=== PATIENT | male | born 1950 | race Caucasian/White ===

== ENCOUNTER → 2017-08-26 | Outpatient (CLI) | payer MEDICARE, BC ==
--- NOTE | 2017-08-26 20:55 | CONS ---
CONSULTATION REASON FOR CONSULTATION: Sleep apnea. This 67-year-old male patient is coming to the sleep center due to concerns about very poor sleep quality, to the point where the patient has not been able to sleep, and his sleep quality, according to him, has been poor for around 35 years. He is not new to our sleep center. He saw Dr. Adorno back in 2005 and was diagnosed having obstructive sleep apnea that was mild in severity, and back then his AHI was only 7. He was given CPAP therapy that he used at a pressure of 9 cm of water. After using the CPAP for quite some time, the patient was still having poor sleep quality and he came back for reevaluation. A repeat sleep study was done in 2009 and the patient was found to have an AHI of 17, which was worse compared to his original study. During this time the patient had gained around 10 pounds. His CPAP pressure was increased up to 12 cm of water. He used the CPAP for another few years and he has been off treatment for the past 5 years. Since then his condition has been progressively getting worse. The patient has been at the point where he is unable to sleep without choking and gasping, and he would wake up constantly in the middle of the night. He is exhausted during the day. He goes to bed early at around 8:30 p.m. and he wakes up and gets out of bed around midnight. Following that, he is unable to fall asleep and he stays awake throughout the night doing different activities, including TV and computer work and reading, and he feels tired and sleepy throughout the day. He is getting progressively more depressed and he is feeling that his sleep quality and health in general have been on a downward course. For that reason, he decided to come back to the sleep center to undergo further evaluation. The patient is known to have coronary artery disease and diabetes mellitus and hypertension, hyperlipidemia. His previous sleep study had shown also a moderate degree of periodic limb movements, yet the patient denies having any symptoms of restless legs. No numbness or tingling in the lower extremities bilaterally. Denies having any kicks. This is also supported by his 's observation. Nevertheless, he is snoring very loudly and he would quit breathing on multiple occasions, as reported by his . He has gained weight; overall he has gained around 20 pounds since his original evaluation for sleep apnea back in 2005. Currently he is up to 263. No anxiety. No depression. No sleepwalking or sleeptalking. No chronic pain. Occasional reflux, for which he is on proton pump inhibitor. No other psychiatric disorder. PAST MEDICAL HISTORY: 1. Obstructive sleep apnea, details as discussed above. 2. Coronary artery disease. 3. Diabetes. 4. Hypertension. 5. History of depression. 6. History of acid reflux. 7. Atrial fibrillation. SURGICAL HISTORY: 1. Epigastric hernia repair. 2. Repair of a rotator cuff. DRUG ALLERGIES: PENICILLIN. OUTPATIENT MEDICATION LIST: 1. Levemir insulin. 2. 2 mg t.i.d. 3. 1 tablet a day. 4. Metoprolol 25 mg p.o. daily. 5. Losartan 100 mg p.o. daily. 6. Coumadin 5 mg p.o. daily. 7. Metformin 500 mg ER 2 tablets twice a day. 8. Atorvastatin 10 mg p.o. daily. SOCIAL HISTORY: Nonsmoker. No history of alcoholism. No history of IV drugs. No substance abuse. FAMILY HISTORY: Negative for sleep apnea. REVIEW OF SYSTEMS: Twelve-point review of systems was done. The patient admits to snoring and stopped breathing. He has nocturia. No grinding of the teeth. No sleepwalking or dry mouth. No anxiety or panic attacks. No palpitations. No heartburn. No sleeptalking. No symptoms of restless legs syndrome. No sweating. No anxiety. No memory problems. No concentration problems. No history of active depression at this point. PHYSICAL EXAMINATION: BP is 160/87, pulse 73, respirations 16, temperature 98.3 saturation 95% on room air. Weight is 263. Height is 5 feet 11 inches. Bessemer score is 7. BMI is 36. GENERAL APPEARANCE: Calm, comfortable. No acute distress. Head is atraumatic, normocephalic. Neck is short, supple. There is crowding of the posterior pharynx with a Mallampati class IV. LUNGS: Clear to auscultation. Heart sounds are regular rate and rhythm. Normal S1, S2. No S3, S4. No murmurs. ABDOMEN: Soft, nontender. No organomegaly. EXTREMITIES: No edema. No cyanosis or clubbing. NEUROLOGIC: Alert and oriented x3. There is no focal neurological deficit. PSYCHIATRIC: Negative for anxiety or depression. IMPRESSION: 1. Obstructive sleep apnea, moderate, based on the sleep study that was done in 2009 with an AHI of 17. Nevertheless, the patient's condition has gotten worse and the patient is coming in for reevaluation, knowing that he has become much more symptomatic. He is not utilizing any form of CPAP therapy at this point. 2. Periodic limb movements without symptoms of restless legs syndrome. 3. Coronary artery disease. 4. Diabetes mellitus. 5. Hypertension. 6. Hyperlipidemia. 7. Chronic atrial fibrillation. 8. History of depression. 9. History of acid reflux. PLAN: Reevaluate this patient. The patient obviously has developed significant difficulties with his sleep quality, to the point where he has his sleep hours to an earlier phase and he has an advanced sleep phase syndrome, yet his sleep quality is poor and he is unable to achieve more than 5 hours of sleep; he snores and he quits breathing; and as such, he has been feeling very tired and fatigued during the day. He will need reevaluation to assess the presence and the severity of obstructive sleep apnea, and based on that we will make further recommendations on treatment options. It is very likely that the patient will need to go back on CPAP therapy. This will largely depend on the presence and the severity of sleep apnea as it will be measured during a repeat polysomnogram that will be scheduled to be done here at [facility]. YANA / AUTUMN: [id number] /
== END | disposition home or self-care (01) ==
LOC: SLEEP 15:16
PROVIDERS: ATTEND Internal Medicine Critical Care Medicine
DX: G47.33 Obstructive sleep apnea (adult) (pediatric) (principal); G47.61 Periodic limb movement disorder; I25.10 Atherosclerotic heart disease of native coronary artery without angina pectoris; E11.9 Type 2 diabetes mellitus without complications; I10 Essential (primary) hypertension; I48.2 Chronic atrial fibrillation; Z87.19 Personal history of other diseases of the digestive system; Z86.59 Personal history of other mental and behavioral disorders; Z88.0 Allergy status to penicillin; Z79.4 Long term (current) use of insulin; Z79.01 Long term (current) use of anticoagulants; Z79.84 Long term (current) use of oral hypoglycemic drugs; Z79.899 Other long term (current) drug therapy
CPT/HCPCS: 99211

== ENCOUNTER → 2017-12-02 | Outpatient (CLI) | payer MEDICARE, BC ==
--- NOTE | 2017-12-02 19:11 | PN ---
PROGRESS NOTE I am seeing this patient in followup regarding his SHRADDHA treatment and compliancy. The patient is 67 and presented with features consistent with obstructive sleep apnea and the patient was diagnosed having moderate to severe SHRADDHA with an AHI of 26, worse during REM. The patient was offered CPAP therapy at a pressure of 10 cm of water with a C- Flex of 3 and he was given an AirFit P10 nose pillow. The patient reported marked improvement in his sleep quality. He is much more improved and is sleeping peacefully and is waking up much more alert and refreshed during the day. No major hypersomnia or sleepiness during the day. No falling asleep while driving or performing day-to-day activities. Based on his compliance data, the patient is averaging around 7.1 hours of CPAP use per night. His CPAP use for more than 4 hours is 23/30. His AHI while on treatment is down to 3.4. His leak factor is 13 L/minute. He has no specific complaints. He is trying to lose weight. He has already lost 2 pounds since his last evaluation. REVIEW OF SYSTEMS: A 12-point review of systems was done. Positive findings are mentioned above in the history of present illness. Otherwise, the patient has no significant complaints. No angina. No shortness of breath. No palpitations at nighttime. No major hypersomnia or sleepiness during the day. No swelling of lower extremities. No anxiety or depression. BP is 150/70, pulse 64, respirations 16, temperature is 97.5, weight is 261, saturation 97% on room air. GENERAL APPEARANCE: Calm, comfortable. Head is atraumatic, normocephalic. Neck is supple. There is no JVD. No goiter or neck masses. LUNGS: Clear to auscultation. HEART: Sounds regular rate and rhythm. Normal S1, S2. No S3. No murmurs. ABDOMEN: Soft, nontender. No organomegaly. EXTREMITIES: No edema. No cyanosis or clubbing. NEUROLOGIC: Alert and oriented x3. There are no focal neurological deficits. PSYCHIATRIC: Negative for anxiety or depression. IMPRESSION: 1. Symptomatic obstructive sleep apnea, apnea-hypopnea index of 26, worse during REM. The patient is undergoing successful CPAP therapy with a pressure of 10 cm of water with a C-Flex of 3. 2. Obesity with a BMI of 36. 3. Coronary artery disease. 4. Diabetes mellitus. 5. Hypertension. 6. Hyperlipidemia. 7. History of atrial fibrillation. Current rhythm is sinus. 8. Depression. 9. Acid reflux. PLAN: 1. Continue CPAP therapy at the same level of pressure. 2. Renew the supplies. 3. Encourage weight loss. 4. Treatment is successful. The patient qualifies for treatment. He is much benefitting from the treatment and the patient will see me back in a year's time in followup, earlier if needed. MMLEAL / GARRETTN: [id number] /
== END ==
LOC: SLEEP 14:58
PROVIDERS: ATTEND Internal Medicine Critical Care Medicine
DX: G47.33 Obstructive sleep apnea (adult) (pediatric) (principal); E66.9 Obesity, unspecified; I25.10 Atherosclerotic heart disease of native coronary artery without angina pectoris; E11.9 Type 2 diabetes mellitus without complications; I10 Essential (primary) hypertension; E78.5 Hyperlipidemia, unspecified; F32.9 Major depressive disorder, single episode, unspecified; K21.9 Gastro-esophageal reflux disease without esophagitis; Z99.89 Dependence on other enabling machines and devices; Z68.36 Body mass index [BMI] 36.0-36.9, adult; I48.91 Unspecified atrial fibrillation

== ENCOUNTER 2020-01-04 07:59 | Emergency (ER) | payer MEDICARE, BC ==
--- NOTE | 2020-01-04 08:27 | ED ---
General Adult HPI - General Chief complaint: Chest Pain Stated complaint: Chest pain Time Seen by Provider: 01/04/20 08:10 Source: patient, RN notes reviewed, old records reviewed Mode of arrival: ambulatory Limitations: no limitations - History of Present Illness Initial comments: 69-year-old male presenting for evaluation of left-sided chest pain. Pain began approximately 45 minutes prior to arrival. This is a nonradiating pain on the left side of his chest. No associated diaphoresis, no associated vomiting. No abdominal pain. Patient has history of CAD, atrial fibrillation, hypertension, hypercholesterolemia and diabetes. He is currently on Coumadin and metoprolol. He has been compliant with this medication. He states he had a stent placed in 2019. He does follow regularly with cardiology. - Related Data Home Medications Medication Instructions Recorded Confirmed Atorvastatin [Lipitor] 10 mg PO DAILY 01/04/20 01/04/20 Fluocinonide 0.05% [Fluocinonide] 1 applic TOPICAL HS 01/04/20 01/04/20 Hydrocortisone Cream 1 applic TOPICAL DAILY 01/04/20 01/04/20 [Hydrocortisone 2.5% Cream] Insulin Glargine,Hum.rec.anlog 30 unit SQ BID 01/04/20 01/04/20 [Lantus Solostar] Ketoconazole 2% Shampoo [Nizoral] 1 applic TOPICAL HS 01/04/20 01/04/20 Losartan Potassium 100 mg PO DAILY 01/04/20 01/04/20 Metoprolol Tartrate [Lopressor] 25 mg PO BID 01/04/20 01/04/20 Pioglitazone [Actos] 30 mg PO HS 01/04/20 01/04/20 Repaglinide [Prandin] 2 mg PO TID 01/04/20 01/04/20 Warfarin [Coumadin] 5 mg PO [id number] 01/04/20 01/04/20 metFORMIN HCL [metFORMIN HCL ER] 1,000 mg PO BID 01/04/20 01/04/20 Allergies Allergy/AdvReac Type Severity Reaction Status Date / Time Penicillins Allergy Unknown Verified 01/04/20 08:58 Review of Systems ROS Statement: Those systems with pertinent positive or pertinent negative responses have been documented in the HPI. ROS Other: All systems not noted in ROS Statement are negative. Past Medical History Past Medical History: Atrial Fibrillation, Diabetes Mellitus, Hyperlipidemia, Hypertension History of Any Multi-Drug Resistant Organisms: None Reported Past Surgical History: Heart Catheterization With Stent, Hernia Repair, Orthopedic Surgery Past Psychological History: No Psychological Hx Reported Smoking Status: Never smoker Past Alcohol Use History: Occasional Past Drug Use History: None Reported General Exam Limitations: no limitations General appearance: alert Head exam: Present: atraumatic, normocephalic Eye exam: Present: normal appearance, PERRL ENT exam: Present: normal exam Neck exam: Present: normal inspection. Absent: tenderness, meningismus Respiratory exam: Present: normal lung sounds bilaterally, chest wall tenderness. Absent: respiratory distress, wheezes Cardiovascular Exam: Present: normal rhythm, bradycardia GI/Abdominal exam: Present: soft. Absent: distended, tenderness Extremities exam: Present: normal inspection, normal capillary refill, other (B ilateral PT pulses 2+, symmetric radial pulses 2+). Absent: pedal edema Neurological exam: Present: alert, oriented X3, CN II-XII intact. Absent: motor sensory deficit Psychiatric exam: Present: normal affect, normal mood Skin exam: Present: warm, dry, intact. Absent: cyanosis, diaphoretic Course Vital Signs 01/04/20 01/04/20 01/04/20 08:06 08:22 09:02 Temperature 97.7 F Pulse Rate 57 L 50 L 52 L Pulse Rate [ 50 L Bilateral Radial] Respiratory 16 16 12 Rate Blood Pressure 139/78 164/85 122/74 O2 Sat by Pulse 98 98 97 Oximetry 01/04/20 01/04/20 09:44 10:07 Temperature Pulse Rate 53 L 60 Pulse Rate [ Bilateral Radial] Respiratory 12 16 Rate Blood Pressure 138/88 125/94 O2 Sat by Pulse 97 97 Oximetry EKG Findings - EKG Comments: EKG Findings:: EKG: Sinus bradycardia rate of 52, CA interval 184, QRS duration 86, QTC 405, no ST segment elevation. EKG repeated at 832, sinus bradycardia rate of 49, CA interval 190, QRS duration 72, QTC 42, no ST segment elevation. Medical Decision Making - Medical Decision Making 69-year-old male presenting with chest pain. No associated symptoms. Pain is reproducible on exam. EKG sinus bradycardia with no ST segment elevation repea luiz after 15 minutes and unchanged. Patient has normal CBC, normal CMP with the exception of a mildly elevated serum creatinine which is baseline for this patient. He has an initial troponin which is negative. We did discuss possibility of observation versus repeat troponin in the emergency department at 3 hours and the patient prefers to be discharged home with a repeat troponin. This is repeated and is negative 2. He will return with any worsening or changing symptoms. 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 - Lab Data Result diagrams: 01/04/20 08:21 01/04/20 08:21 Lab Results 01/04/20 01/04/20 01/04/20 Range/Units 08:21 08:21 08:21 WBC 5.7 (3.8-10.6) k/uL RBC 4.44 (4.30-5.90) m/uL Hgb 13.9 (13.0-17.5) gm/dL Hct 41.5 (39.0-53.0) % MCV 93.4 (80.0-100.0) fL MCH 31.4 (25.0-35.0) pg MCHC 33.6 (31.0-37.0) g/dL RDW 13.0 (11.5-15.5) % Plt Count 207 (150-450) k/uL Neutrophils % 60 % Lymphocytes % 31 % Monocytes % 5 % Eosinophils % 2 % Basophils % 1 % Neutrophils # 3.4 (1.3-7.7) k/uL Lymphocytes # 1.8 (1.0-4.8) k/uL Monocytes # 0.3 (0-1.0) k/uL Eosinophils # 0.1 (0-0.7) k/uL Basophils # 0.0 (0-0.2) k/uL PT 19.1 H (9.0-12.0) sec INR 2.0 H (<1.2) APTT 28.6 (22.0-30.0) sec Sodium 142 (137-145) mmol/L Potassium 4.3 (3.5-5.1) mmol/L Chloride 106 (98-107) mmol/L Carbon Dioxide 26 (22-30) mmol/L Anion Gap 10 mmol/L BUN 30 H (9-20) mg/dL Creatinine 1.42 H (0.66-1.25) mg/dL Est GFR (CKD-EPI)AfAm 59 (>60 ml/min/1.73 sqM) Est GFR (CKD-EPI)NonAf 51 (>60 ml/min/1.73 sqM) Glucose 74 (74-99) mg/dL Calcium 9.3 (8.4-10.2) mg/dL Magnesium 1.8 (1.6-2.3) mg/dL Total Bilirubin 0.5 (0.2-1.3) mg/dL AST 35 (17-59) U/L ALT 38 (4-49) U/L Alkaline Phosphatase 58 (38-126) U/L Troponin I (0.000-0.034) ng/mL Total Protein 7.2 (6.3-8.2) g/dL Albumin 4.6 (3.5-5.0) g/dL 01/04/20 01/04/20 Range/Units 08:21 10:53 WBC (3.8-10.6) k/uL RBC (4.30-5.90) m/uL Hgb (13.0-17.5) gm/dL Hct (39.0-53.0) % MCV (80.0-100.0) fL MCH (25.0-35.0) pg MCHC (31.0-37.0) g/dL RDW (11.5-15.5) % Plt Count (150-450) k/uL Neutrophils % % Lymphocytes % % Monocytes % % Eosinophils % % Basophils % % Neutrophils # (1.3-7.7) k/uL Lymphocytes # (1.0-4.8) k/uL Monocytes # (0-1.0) k/uL Eosinophils # (0-0.7) k/uL Basophils # (0-0.2) k/uL PT (9.0-12.0) sec INR (<1.2) APTT (22.0-30.0) sec Sodium (137-145) mmol/L Potassium (3.5-5.1) mmol/L Chloride (98-107) mmol/L Carbon Dioxide (22-30) mmol/L Anion Gap mmol/L BUN (9-20) mg/dL Creatinine (0.66-1.25) mg/dL Est GFR (CKD-EPI)AfAm (>60 ml/min/1.73 sqM) Est GFR (CKD-EPI)NonAf (>60 ml/min/1.73 sqM) Glucose (74-99) mg/dL Calcium (8.4-10.2) mg/dL Magnesium (1.6-2.3) mg/dL Total Bilirubin (0.2-1.3) mg/dL AST (17-59) U/L ALT (4-49) U/L Alkaline Phosphatase (38-126) U/L Troponin I <0.012 <0.012 (0.000-0.034) ng/mL Total Protein (6.3-8.2) g/dL Albumin (3.5-5.0) g/dL Disposition Clinical Impression: Chest pain Disposition: HOME SELF-CARE Condition: Good Instructions (If sedation given, give patient instructions): Chest Pain (ED) Is patient prescribed a controlled substance at d/c from ED?: No Referrals: Hany Sotomayor MD [Primary Care Provider] - 1-2 days Time of Disposition: 11:41
[2020-01-04 08:31] LABS: Basophils % (A) 1 %; Eosinophils # (A) 0.1 k/uL (0-0.7); Eosinophils % (A) 2 %; HCT 41.5 % (39.0-53.0); HGB 13.9 gm/dL (13.0-17.5); Lymphocytes # (A) 1.8 k/uL (1.0-4.8); Lymphocytes % (A) 31 %; MCH 31.4 pg (25.0-35.0); MCHC 33.6 g/dL (31.0-37.0); MCV 93.4 fL (80.0-100.0); Mean Platelet Volume 7.4; Monocytes # (A) 0.3 k/uL (0-1.0); Monocytes % (A) 5 %; Neutrophils # (A) 3.4 k/uL (1.3-7.7); Neutrophils % (A) 60 %; Platelet Count 207 k/uL (150-450); RBC 4.44 m/uL (4.30-5.90); WBC 5.7 k/uL (3.8-10.6)
[2020-01-04 08:41] LABS: Albumin 4.6 g/dL (3.5-5.0); Calcium 9.3 mg/dL (8.4-10.2); Magnesium 1.8 mg/dL (1.6-2.3); Potassium 4.3 mmol/L (3.5-5.1); Total Bilirubin 0.5 mg/dL (0.2-1.3); Total Protein 7.2 g/dL (6.3-8.2)
[2020-01-04 08:49] LABS: Partial Thromboplastin Time 28.6 sec (22.0-30.0); Prothrombin Time 19.1 sec (9.0-12.0)
--- NOTE | 2020-01-04 08:52 | XR ---
EXAMINATION TYPE: XR chest 2V DATE OF EXAM: 01/04/2020 COMPARISON: 09/12/2014 HISTORY: 69-year-old male with chest pain TECHNIQUE: PA and lateral views FINDINGS: The cardiomediastinal silhouette, aorta, and pulmonary vasculature are within normal limits. Mild rosita tral peribronchial cuffing. Low lung volumes with strandy atelectasis at the lower lungs. No consolid ation or pleural effusion. IMPRESSION: Hypoventilatory changes. Some central peribronchial cuffing could reflect bronchitis or asthma. No fo mynor infiltrate.
[2020-01-04] MEDS ORDERED: ACETAMINOPHEN TAB 500 MG TAB PO STA (10:55)
[2020-01-04 11:54] VITALS: BP 127/73; PULSE 61; RESP 18; TEMP 97.9
== END 2020-01-04 11:54 | disposition home or self-care (01) ==
LOC: EC 07:59
DX: R07.9 Chest pain, unspecified (principal); R00.1 Bradycardia, unspecified; R79.89 Other specified abnormal findings of blood chemistry; E11.9 Type 2 diabetes mellitus without complications; I10 Essential (primary) hypertension; E78.5 Hyperlipidemia, unspecified; E78.00 Pure hypercholesterolemia, unspecified; I25.10 Atherosclerotic heart disease of native coronary artery without angina pectoris; I48.91 Unspecified atrial fibrillation; Z79.01 Long term (current) use of anticoagulants; Z79.4 Long term (current) use of insulin; Z79.899 Other long term (current) drug therapy; Z88.0 Allergy status to penicillin
CPT/HCPCS: 36415; 71046; 80053; 83735; 84484; 85025; 85610; 85730; 93005; 99285

== ENCOUNTER 2020-10-20 14:38 | Emergency (ER) | payer MEDICARE, BC ==
[2020-10-20 14:49] VITALS: PULSE 80; TEMP 97.9
[2020-10-20] MEDS ORDERED: SODIUM CHLORIDE 0.9% 500 ML 500 ML IV STA (15:36)
--- NOTE | 2020-10-20 15:42 | ED ---
General Adult HPI - General Chief complaint: Arrhythmia/Palpitations Stated complaint: Afib/high HR Time Seen by Provider: 10/20/20 15:13 Source: patient Mode of arrival: wheelchair Limitations: no limitations - History of Present Illness Initial comments: 70-year-old male with a past medical history of atrial fibrillation, diabetes mellitus, hyperlipidemia, hypertension presents to the emergency room for atrial fibrillation. Patient reports he started to notice he was in atrial fibrillation last night. States that he used his heart monitored to decipher this. Patient reports that today he took an extra metoprolol in the morning. 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 His yardage control operator was not in the office so the office staff sent him to the ER. Patient states he is asymptomatic at this time. Patient's heart rate currently in the 70s to 80s. Patient is rate controlled on metoprolol and anticoagulated on Coumadin.Patient has no other complaints at this time including shortness of breath, chest pain, abdominal pain, nausea or vomiting, headache, or visual changes. - Related Data Home Medications Medication Instructions Recorded Confirmed Atorvastatin [Lipitor] 10 mg PO DAILY 01/04/20 10/20/20 Insulin Glargine,Hum.rec.anlog 45 unit SQ DAILY 01/04/20 10/20/20 [Lantus Solostar] Losartan Potassium 100 mg PO DAILY 01/04/20 10/20/20 Pioglitazone [Actos] 30 mg PO DAILY 01/04/20 10/20/20 Repaglinide [Prandin] 2 mg PO TID 01/04/20 10/20/20 Warfarin [Coumadin] 5 mg PO DAILY 01/04/20 10/20/20 Albuterol Sulfate [Ventolin HFA] 2 puff INHALATION RT-Q6H PRN 10/20/20 10/20/20 Insulin Glargine,Hum.rec.anlog 15 unit SQ HS 10/20/20 10/20/20 [Lantus Solostar] Metoprolol Tartrate [Lopressor] 50 mg PO BID 10/20/20 10/20/20 Multivitamins, Thera [Multivitamin 1 tab PO DAILY 10/20/20 10/20/20 (formulary)] Nitroglycerin 0.4 mg SL Q5M PRN 10/20/20 10/20/20 metFORMIN HCL [Glucophage] 1,000 mg PO BID 10/20/20 10/20/20 Allergies Allergy/AdvReac Type Severity Reaction Status Date / Time Penicillins Allergy Unknown Verified 10/20/20 16:04 Review of Systems ROS Statement: Those systems with pertinent positive or pertinent negative responses have been documented in the HPI. ROS Other: All systems not noted in ROS Statement are negative. Past Medical History Past Medical History: Atrial Fibrillation, Diabetes Mellitus, Hyperlipidemia, Hypertension History of Any Multi-Drug Resistant Organisms: None Reported Past Surgical History: Heart Catheterization With Stent, Hernia Repair, Orthopedic Surgery Past Psychological History: No Psychological Hx Reported Smoking Status: Never smoker Past Alcohol Use History: Occasional Past Drug Use History: None Reported General Exam Limitations: no limitations General appearance: alert, in no apparent distress Head exam: Present: atraumatic, normocephalic, normal inspection Eye exam: Present: normal appearance, PERRL, EOMI. Absent: scleral icterus, co njunctival injection, periorbital swelling ENT exam: Present: normal exam, mucous membranes moist Neck exam: Present: normal inspection. Absent: tenderness, meningismus, lymphadenopathy Respiratory exam: Present: normal lung sounds bilaterally. Absent: respiratory distress, wheezes, rales, rhonchi, stridor Cardiovascular Exam: Present: regular rate, normal rhythm, normal heart sounds. Absent: systolic murmur, diastolic murmur, rubs, gallop, clicks GI/Abdominal exam: Present: soft, normal bowel sounds. Absent: distended, tenderness, guarding, rebound, rigid Neurological exam: Present: alert Course Vital Signs 10/20/20 14:45 Temperature 97.9 F Pulse Rate 80 Respiratory 18 Rate Blood Pressure 150/82 O2 Sat by Pulse 98 Oximetry EKG Findings - EKG Comments: EKG Findings:: Atrial fibrillation, ventricular rate 79, QRS duration 72, QTC 426 Medical Decision Making - Medical Decision Making Vitals are stable. Patient has stayed in the 70s and 80s. EKG does show atrial fibrillation with a heart rate of 79. CBC CMP unremarkable. INR is therapeutic at 1.8. Patient does have hyperglycemia however has a history of this and takes insulin. Chest x-ray shows no acute process. At this time patient is anticoagulated and he does have a history of atrial fibrillation. He can follow up outpatient as he is stable for discharge. He will continue to monitor his heart rate. - Lab Data Result diagrams: 10/20/20 15:47 10/20/20 15:47 Lab Results 10/20/20 10/20/20 10/20/20 Range/Units 15:47 15:47 15:47 WBC 5.0 (3.8-10.6) k/uL RBC 4.51 (4.30-5.90) m/uL Hgb 13.5 (13.0-17.5) gm/dL Hct 41.7 (39.0-53.0) % MCV 92.3 (80.0-100.0) fL MCH 30.0 (25.0-35.0) pg MCHC 32.5 (31.0-37.0) g/dL RDW 13.4 (11.5-15.5) % Plt Count 196 (150-450) k/uL MPV 7.3 Neutrophils % 63 % Lymphocytes % 27 % Monocytes % 4 % Eosinophils % 4 % Basophils % 1 % Neutrophils # 3.1 (1.3-7.7) k/uL Lymphocytes # 1.4 (1.0-4.8) k/uL Monocytes # 0.2 (0-1.0) k/uL Eosinophils # 0.2 (0-0.7) k/uL Basophils # 0.0 (0-0.2) k/uL PT 17.7 H (9.0-12.0) sec INR 1.8 H (<1.2) APTT 27.3 (22.0-30.0) sec Sodium 137 (137-145) mmol/L Potassium 4.7 (3.5-5.1) mmol/L Chloride 108 H (98-107) mmol/L Carbon Dioxide 22 (22-30) mmol/L Anion Gap 7 mmol/L BUN 23 H (9-20) mg/dL Creatinine 1.21 (0.66-1.25) mg/dL Est GFR (CKD-EPI)AfAm 70 (>60 ml/min/1.73 sqM) Est GFR (CKD-EPI)NonAf 61 (>60 ml/min/1.73 sqM) Glucose 292 H (74-99) mg/dL Calcium 9.3 (8.4-10.2) mg/dL Magnesium 1.7 (1.6-2.3) mg/dL Total Bilirubin 0.4 (0.2-1.3) mg/dL AST 33 (17-59) U/L ALT 35 (4-49) U/L Alkaline Phosphatase 64 (38-126) U/L Troponin I (0.000-0.034) ng/mL Total Protein 6.2 L (6.3-8.2) g/dL Albumin 3.8 (3.5-5.0) g/dL 10/20/20 Range/Units 15:47 WBC (3.8-10.6) k/uL RBC (4.30-5.90) m/uL Hgb (13.0-17.5) gm/dL Hct (39.0-53.0) % MCV (80.0-100.0) fL MCH (25.0-35.0) pg MCHC (31.0-37.0) g/dL RDW (11.5-15.5) % Plt Count (150-450) k/uL MPV Neutrophils % % Lymphocytes % % Monocytes % % Eosinophils % % Basophils % % Neutrophils # (1.3-7.7) k/uL Lymphocytes # (1.0-4.8) k/uL Monocytes # (0-1.0) k/uL Eosinophils # (0-0.7) k/uL Basophils # (0-0.2) k/uL PT (9.0-12.0) sec INR (<1.2) APTT (22.0-30.0) sec Sodium (137-145) mmol/L Potassium (3.5-5.1) mmol/L Chloride (98-107) mmol/L Carbon Dioxide (22-30) mmol/L Anion Gap mmol/L BUN (9-20) mg/dL Creatinine (0.66-1.25) mg/dL Est GFR (CKD-EPI)AfAm (>60 ml/min/1.73 sqM) Est GFR (CKD-EPI)NonAf (>60 ml/min/1.73 sqM) Glucose (74-99) mg/dL Calcium (8.4-10.2) mg/dL Magnesium (1.6-2.3) mg/dL Total Bilirubin (0.2-1.3) mg/dL AST (17-59) U/L ALT (4-49) U/L Alkaline Phosphatase (38-126) U/L Troponin I <0.012 (0.000-0.034) ng/mL Total Protein (6.3-8.2) g/dL Albumin (3.5-5.0) g/dL Disposition Clinical Impression: Atrial fibrillation Disposition: HOME SELF-CARE Condition: Good Instructions (If sedation given, give patient instructions): A-fib (Atrial Fibrillation) (ED) Additional Instructions: Please follow up with your yardage control operator. continue to take your medications as directed. Return to the emergency room for any worsening symptoms. Is patient prescribed a controlled substance at d/c from ED?: No Referrals: Sia Osman MD [Primary Care Provider] - 1-2 days Time of Disposition: 17:22
[2020-10-20 16:02] LABS: Basophils % (A) 1 %; Eosinophils # (A) 0.2 k/uL (0-0.7); Eosinophils % (A) 4 %; HCT 41.7 % (39.0-53.0); HGB 13.5 gm/dL (13.0-17.5); Lymphocytes # (A) 1.4 k/uL (1.0-4.8); Lymphocytes % (A) 27 %; MCHC 32.5 g/dL (31.0-37.0); MCV 92.3 fL (80.0-100.0); Mean Platelet Volume 7.3; Monocytes # (A) 0.2 k/uL (0-1.0); Monocytes % (A) 4 %; Neutrophils # (A) 3.1 k/uL (1.3-7.7); Neutrophils % (A) 63 %; Platelet Count 196 k/uL (150-450); RBC 4.51 m/uL (4.30-5.90); RDW 13.4 % (11.5-15.5)
--- NOTE | 2020-10-20 16:10 | XR ---
EXAMINATION TYPE: XR chest 2V DATE OF EXAM: 10/20/2020 CLINICAL HISTORY: dysrhythmia. TECHNIQUE: Frontal and lateral view of the chest. COMPARISON: 01/04/2020 FINDINGS: The cardiomediastinal silhouette is within normal limits for size. Pulmonary vasculature i s normal. There is no focal air space opacity. No pleural effusion. No pneumothorax seen. Degenerati ve changes of the spine with redemonstrated wedging of the inferior thoracic spine similar to 01/04/20 comparison. IMPRESSION: No acute cardiopulmonary process.
[2020-10-20 16:18] LABS: Potassium 4.7 mmol/L (3.5-5.1)
[2020-10-20 16:19] LABS: Albumin 3.8 g/dL (3.5-5.0); Calcium 9.3 mg/dL (8.4-10.2); INR 1.8 (<1.2); Magnesium 1.7 mg/dL (1.6-2.3); Partial Thromboplastin Time 27.3 sec (22.0-30.0); Prothrombin Time 17.7 sec (9.0-12.0); Total Bilirubin 0.4 mg/dL (0.2-1.3); Total Protein 6.2 g/dL (6.3-8.2)
[2020-10-20 17:44] VITALS: BP 111/83; RESP 16
== END 2020-10-20 17:45 | disposition home or self-care (01) ==
LOC: EC 14:38
DX: I48.91 Unspecified atrial fibrillation (principal); E11.65 Type 2 diabetes mellitus with hyperglycemia; I10 Essential (primary) hypertension; E78.5 Hyperlipidemia, unspecified; Z88.0 Allergy status to penicillin; Z79.84 Long term (current) use of oral hypoglycemic drugs; Z79.01 Long term (current) use of anticoagulants
CPT/HCPCS: 36415; 71046; 80053; 83735; 84484; 85025; 85610; 85730; 93005; 96360; 96361; 99285

== ENCOUNTER → 2021-07-09 | Outpatient (CLI) | payer MEDICARE, BC ==
--- NOTE | 2021-07-09 13:41 | US ---
EXAMINATION TYPE: US venous doppler duplex LE BI DATE OF EXAM: 07/09/2021 1:32 PM COMPARISON: NONE CLINICAL HISTORY: M79.89 swelling. SIDE PERFORMED: Bilateral TECHNIQUE: The lower extremity deep venous system is examined utilizing real time linear array sonog tanner with graded compression, doppler sonography and color-flow sonography. VESSELS IMAGED: Common Femoral Vein Deep Femoral Vein Greater Saphenous Vein * Femoral Vein Popliteal Vein Small Saphenous Vein * Proximal Calf Veins (* superficial vessels) Right Leg: Negative for DVT Left Leg: Negative for DVT Patient developed lump on right anterior calf 2 days prior, it is a raised, red and painful. Patient states he had no injury. There is a solid appearing mass measuring 4.0 x 1.3 x 2.4 cm Grayscale, color doppler, spectral doppler imaging performed of the deep veins of the bilateral lower extremities. There is normal flow, compressibility, vascular waveforms. IMPRESSION: No ultrasound evidence for acute DVT in either lower extremity. There is a oval heteroge neous hypoechoic solid mass measuring 4.0 x 2.4 x 1.3 cm in the subcutaneous tissue at site of palpab le lump right calf. Considers lipoma or other solid subcutaneous mass lesion. More aggressive etiolog y not excluded. Advise further investigation with MRI exam without and with contrast.
== END ==
LOC: RADUSWWP 12:53
PROVIDERS: ATTEND Internal Medicine
DX: M79.89 Other specified soft tissue disorders (principal); R22.41 Localized swelling, mass and lump, right lower limb
CPT/HCPCS: 93970

== ENCOUNTER → 2021-07-18 | Outpatient (CLI) | payer MEDICARE, BC ==
--- NOTE | 2021-07-19 05:39 | MR ---
EXAMINATION TYPE: MR tib fib RT wo con DATE OF EXAM: 07/18/2021 COMPARISON: None HISTORY: Subcutaneous mass of right lower extremity. Marker placed Multiplanar multiecho imaging of the lower legs performed without contrast. The tibia and fibula appear intact. There is no evidence of bony destructive process. Muscle bundles appear intact. There is oval shaped subcutaneous mass in the anterior lateral aspect of the right lower leg. This me asures 38 x 20 x 11 mm and margins are sharp. This has low signal on T2 and intermediate signal on T1 and therefore not a simple cyst. This could be old hematoma containing hemosiderin. There is a marke r on the skin at the site of the lesion. The adjacent muscle bundles have normal signal pattern. The remainder of the exam is unremarkable. IMPRESSION: Oval-shaped benign-appearing mass has low signal on T2 and could be a chronic subcutaneous hematoma.
== END | disposition home or self-care (01) ==
LOC: RADMRIMAIN 18:03
PROVIDERS: ATTEND Internal Medicine
DX: R22.41 Localized swelling, mass and lump, right lower limb (principal)

== ENCOUNTER → 2021-09-25 | Outpatient (CLI) | payer MEDICARE, BC ==
[2021-09-25 14:31] LABS: HCT 39.5 % (39.6-50.0); HGB 12.7 g/dL (13.0-17.0); MCH 29.5 pg (27.0-32.0); MCHC 32.2 g/dL (32.0-37.0); MCV 91.9 fL (80.0-97.0); NRBC Per 100 WBC 0 /100 WBCS (0.0-0.0); Platelet Count 204 X 10*3/uL (140-440); RDW 12.8 % (11.5-14.5); WBC 4.14 X 10*3/uL (4.50-10.00)
[2021-09-25 15:50] LABS: African American GFR (CKD) 68.5 (60.0-200.0); Albumin 4.2 g/dL (3.8-4.9); Albumin/Globulin Ratio 1.97 (1.60-3.17); Anion Gap 13.7 mmol/L (10.00-18.00); BUN/Creat Ratio 18.29 Ratio (12.00-20.00); Blood Urea Nitrogen 22.5 mg/dL (9.0-27.0); Calcium 9.2 mg/dL (8.7-10.3); Carbon Dioxide 22.1 mmol/L (20.0-27.5); Globulin 2.1 g/dL (1.6-3.3); Non-African American GFR(CKD) 59.1 (60.0-200.0); Potassium 4.4 mmol/L (3.5-5.5); Total Bilirubin 0.3 mg/dL (0.30-1.20); Total Protein 6.3 g/dL (6.2-8.2)
== END | disposition home or self-care (01) ==
LOC: LABWHC1 08:41
PROVIDERS: ATTEND Internal Medicine
DX: I10 Essential (primary) hypertension (principal); E11.9 Type 2 diabetes mellitus without complications
CPT/HCPCS: 36415; 80053; 83036; 85027

== ENCOUNTER → 2022-05-16 | Outpatient (CLI) | payer MEDICARE, BC ==
--- NOTE | 2022-05-17 10:29 | US ---
EXAMINATION TYPE: US kidneys/renal and bladder DATE OF EXAM: 05/16/2022 COMPARISON: NONE CLINICAL HISTORY: N18.31 STAGE 3 CHR KIDNEY DISEASE. CKD 3 EXAM MEASUREMENTS: Right Kidney: 12.9 x 4.8 x 4.6 cm Left Kidney: 11.1 x 4.7 x 3.4 cm Right Kidney: No hydronephrosis or masses seen Left Kidney: No hydronephrosis or masses seen Bladder: wnl Bilateral Jets seen: Yes IMPRESSION: 1. Normal renal ultrasound
== END | disposition home or self-care (01) ==
LOC: RADUSWWP 15:27
PROVIDERS: ATTEND Internal Medicine
DX: N18.31 Chronic kidney disease, stage 3a (principal)
CPT/HCPCS: 76770

== ENCOUNTER → 2022-11-26 | Outpatient (CLI) | payer MEDICARE, BC ==
--- NOTE | 2022-11-26 11:28 | XR ---
EXAMINATION TYPE: XR chest 2V DATE OF EXAM: 11/26/2022 COMPARISON: NONE TECHNIQUE: PA and lateral views submitted. HISTORY: Pain FINDINGS: The lungs are clear and there is no pneumothorax, pleural effusion, or focal pneumonia. Heart size normal and no overt failure. Osseous structures demonstrate hypertrophic and degenerative changes of the spine. Postsurgical changes compatible with rotator cuff repair surgery on the left. Limited insp iration. IMPRESSION: 1. No acute process.
== END | disposition home or self-care (01) ==
LOC: RADXRMAIN 11:04
PROVIDERS: ATTEND Internal Medicine
DX: J18.9 Pneumonia, unspecified organism (principal)
CPT/HCPCS: 71046